=== PATIENT | female | born 1940 | race Caucasian/White ===

== ENCOUNTER → 2021-02-07 | Outpatient (RCR) | payer MEDICARE | LOC: PT 01-30 13:20 | PROVIDERS: ATTEND Physician Assistant | DX: M17.11 Unilateral primary osteoarthritis, right knee (principal); S83.241A Other tear of medial meniscus, current injury, right knee, initial encounter ==

== ENCOUNTER → 2021-03-10 | Outpatient (RCR) | payer MEDICARE | LOC: PT 02-10 14:57 | PROVIDERS: ATTEND Physician Assistant | DX: M17.11 Unilateral primary osteoarthritis, right knee (principal) ==

== ENCOUNTER → 2021-04-10 | Outpatient (RCR) | payer MEDICARE | LOC: PT 03-13 07:43 | PROVIDERS: ATTEND Physician Assistant | DX: M17.11 Unilateral primary osteoarthritis, right knee (principal); M23.303 Other meniscus derangements, unspecified medial meniscus, right knee ==

== ENCOUNTER 2021-04-11 11:12 | Outpatient (RCR) | payer MEDICARE | END 2021-05-08 | LOC: PT 11:12 | PROVIDERS: ATTEND Physician Assistant | DX: M17.11 Unilateral primary osteoarthritis, right knee (principal); M25.561 Pain in right knee; M23.203 Derangement of unspecified medial meniscus due to old tear or injury, right knee ==

== ENCOUNTER 2022-07-03 13:24 | Outpatient (RCR) | payer MEDICARE | END 2022-07-08 | LOC: PT 13:24 | PROVIDERS: ATTEND Physician Assistant | DX: M25.512 Pain in left shoulder (principal) ==

== ENCOUNTER → 2024-10-09 | Outpatient (REF) | payer MEDICARE ==
[~2024-10-09] MED LIST: ARAVA20 MG PO; ASPIRIN EC81 MG PO; CENTRUM ADULTS1 EACH PO; FUROSEMIDE40 MG PO; LEVOTHYROXINE50 MCG PO; LOSARTAN POTAS100 MG PO; PRAVASTATIN SOD40 MG PO; VITAMIN D PO
[2024-10-09 14:27] LABS: BASOPHILS % 0.6 % (0.0-1.0); EOSINOPHILS % 1.8 % (0.0-6.0); LYMPHOCYTES % 15.0 % (18.0-39.1); MONOCYTES % 8.6 % (4.4-11.3); NEUTROPHILS % 73.7 % (38.7-80.0); RED CELL DISTRIBUTION WIDTH 12.0 % (11.7-14.4)
== END ==
LOC: RAD 12:38 → EDSTATUS 10-15 07:00
PROVIDERS: ATTEND Student in an Organized Health Care Education/Training Program
DX: Z01.818 Encounter for other preprocedural examination (principal); M48.062 Spinal stenosis, lumbar region with neurogenic claudication
CPT/HCPCS: 36415; 85025; 93005

== ENCOUNTER → 2024-11-25 | Day surgery (SDC) | payer MEDICARE ==
[~2024-11-25] MED LIST changes: +CLINDAMYCIN 600MG / 50ML 50 ML IV ONE; +FENTANYL CITRATE/PF 100MCG/2 ML INJ ONE; +LIDOCAINE HCL 2% LOCAL INJ 5 ML SDV VIAL INJ ONE; +PROPOFOL IV EMULSION 10 MG/ML 20 ML VIAL ONE
[2024-11-25] MEDS: LACTATED RINGER'S 1,000 ML ONE (06:10)
[2024-11-25 06:36] LABS: BASOPHILS % 0.9 % (0.0-1.0); EOSINOPHILS % 2.9 % (0.0-6.0); LYMPHOCYTES % 18.1 % (18.0-39.1); MONOCYTES % 9.6 % (4.4-11.3); NEUTROPHILS % 68.2 % (38.7-80.0); RED CELL DISTRIBUTION WIDTH 12.0 % (11.7-14.4)
[2024-11-25 06:55] LABS: EST GLOMERULAR FILTRATION RATE 50.0 ML/MIN (>=60)
[2024-11-25 08:21] VITALS: TEMP 97.3
[2024-11-25] MEDS: ACETAMINOPHEN 1000 MG/100 ML 100 ML IV ONE (08:50)
[2024-11-25] MEDS: FENTANYL CITRATE/PF 100MCG/2 ML INJ ONE (08:50)
[2024-11-25 09:20] VITALS: BP 163/80; PULSE 70; RESP 16; O2SAT 97
== END | disposition home or self-care (01) ==
LOC: OR 05:38
PROVIDERS: ATTEND Student in an Organized Health Care Education/Training Program
DX: M48.062 Spinal stenosis, lumbar region with neurogenic claudication (principal); I10 Essential (primary) hypertension; Z87.891 Personal history of nicotine dependence; E03.9 Hypothyroidism, unspecified; E78.5 Hyperlipidemia, unspecified; I25.2 Old myocardial infarction; R01.1 Cardiac murmur, unspecified; Z79.899 Other long term (current) drug therapy; Z79.82 Long term (current) use of aspirin
CPT/HCPCS: 0275T; 36415; 80048; 85025; C1889; J0131; J2003; J2704; J3010; J7121; 76000